=== PATIENT | male | born 1990 | race American Indian/Alaskan Native ===

== ENCOUNTER 2017-02-18 14:55 | Emergency (ER) | payer MEDICAID, OTHER ==
[2017-02-18 15:15] VITALS: BMI 23.3
[2017-02-18 15:19] VITALS: TEMP 100.7
[2017-02-18] MEDS ORDERED: Sodium Chloride 0.9% 1,000 ML IV STA (17:39)
--- NOTE | 2017-02-18 17:43 | ED PDOC ---
Arrival/HPI - General Chief Complaint: Medical Clearance Time Seen by Provider: 02/18/17 17:38 Historian: Patient - History of Present Illness Narrative History of Present Illness (Text): 02/18/17 17:40 This 26 yo male presents to this ED c/o bodyaches x 5 days. Patient stated he had been abusing Percocet, and he stopped taking them 5 days ago. Denies other complains. Time/Duration: Other (see hpi) Quality: Aching Context: Home Past Medical History - Provider Review Nursing Documentation Reviewed: Yes - Infectious Disease Hx of Infectious Diseases: None - Psychiatric Hx Substance Use: No - Anesthesia Hx Anesthesia: No Family/Social History - Physician Review Nursing Documentation Reviewed: Yes Family/Social History: Other (non-contributory) Smoking Status: Former Smoker Hx Alcohol Use: No Hx Substance Use: No Allergies/Home Meds Allergies/Adverse Reactions: Allergies No Known Allergies Allergy (Verified 02/18/17 15:15) Review of Systems - Review of Systems Constitutional: Normal. absent: Fatigue, Weight Change, Fevers Eyes: Normal ENT: Normal Respiratory: Normal. absent: SOB, Cough, Sputum, Wheezing Cardiovascular: Normal. absent: Chest Pain, Palpitations Gastrointestinal: Normal Genitourinary Male: Normal Musculoskeletal: Myalgias, Other (see hpi) Skin: Normal Neurological: Normal Endocrine: Normal Hemo/Lymphatic: Normal Psychiatric: Normal Physical Exam Vital Signs Temp Pulse Resp BP Pulse Ox 02/18/17 20:50 89 16 123/72 100 02/18/17 19:50 88 18 122/71 97 02/18/17 18:52 110 H 131/88 02/18/17 15:18 100.7 F H 108 H 18 122/82 98 Temperature: Febrile Blood Pressure: Normal Pulse: Tachycardic (mild) Respiratory Rate: Normal Appearance: Positive for: Well-Appearing, Non-Toxic, Comfortable Pain Distress: None Mental Status: Positive for: Alert and Oriented X 3 - Systems Exam Head: Present: Atraumatic, Normocephalic Pupils: Present: PERRL Extroacular Muscles: Present: EOMI Conjunctiva: Present: Normal Mouth: Present: Moist Mucous Membranes Neck: Present: Normal Range of Motion Respiratory/Chest: Present: Clear to Auscultation, Good Air Exchange. No: Respiratory Distress, Accessory Muscle Use Cardiovascular: Present: Regular Rate and Rhythm, Normal S1, S2. No: Murmurs Abdomen: Present: Normal Bowel Sounds. No: Tenderness, Distention, Peritoneal Signs Back: Present: Normal Inspection Upper Extremity: Present: Normal Inspection. No: Cyanosis, Edema Lower Extremity: Present: Normal Inspection. No: Edema Neurological: Present: GCS=15, CN II-XII Intact, Speech Normal Skin: Present: Warm, Dry, Normal Color. No: Rashes Psychiatric: Present: Alert, Oriented x 3, Normal Insight, Normal Concentration Medical Decision Making ED Course and Treatment: 02/18/17 20:19 Re-evaluation. Patient feels better. Discussed results and plan with patient who expresses understanding. All questions answered and there is agreement with the plan to discharge home with instructions. Patient stable for discharge. Return if symptoms persist or worsen. Patient came c/o withdrawal symptoms from Percocet. Labs were unremarkable. Patient was found to have fever. Patient requested medication for withdrawal and ABX for his fever. I explained patient fever may be related from Opiods withdrawal. He insisted to have ABX. Re-evaluation Time: 20:19 Reassessment Condition: Re-examined, Improved - Lab Interpretations Lab Results: 02/18/17 18:45 02/18/17 18:45 Lab Results 02/18/17 18:45: Salicylates < 1 L, Acetaminophen < 10.0 L 02/18/17 18:45: Sodium 134, Potassium 4.4, Chloride 96 L, Carbon Dioxide 27, Anion Gap 15, BUN 11, Creatinine 0.9, Est GFR ( Amer) > 60, Est GFR (Non- Af Amer) > 60, Random Glucose 96, Calcium 9.6, Total Bilirubin 0.7, AST 35, ALT 37, Alkaline Phosphatase 100, Total Protein 8.5 H, Albumin 4.7, Globulin 3.8, Albumin/Globulin Ratio 1.2 02/18/17 18:45: WBC 15.2 H, RBC 5.51, Hgb 16.2, Hct 46.7, MCV 84.8, MCH 29.4, MCHC 34.7, RDW 12.8, Plt Count 223, MPV 10.7, Gran % 85.2 H, Lymph % (Auto) 7.3 L, [place] % (Auto) 7.4 H, Eos % (Auto) 0.0 L, Baso % (Auto) 0.1, Gran # 12.92 H, Lymph # 1.1 L, [place] # 1.1 H, Eos # 0.0, Baso # 0.02 - Medication Orders Current Medication Orders: Discontinued Medications Clonidine HCl (Catapres) 0.1 mg PO STAT STA Stop: 02/18/17 17:40 Last Admin: 02/18/17 18:52 Dose: 0.1 mg Sodium Chloride (Sodium Chloride 0.9%) 1,000 mls @ 999 mls/hr IV .Q1H1M STA Stop: 02/18/17 18:39 Last Admin: 02/18/17 18:53 Dose: 999 mls/hr Ketorolac Tromethamine (Toradol) 30 mg IVP STAT STA Stop: 02/18/17 17:40 Last Admin: 02/18/17 18:53 Dose: 30 mg Ondansetron HCl (Zofran Inj) 4 mg IVP STAT STA Stop: 02/18/17 17:41 Last Admin: 02/18/17 18:53 Dose: 4 mg Disposition/Present on Arrival - Present on Arrival Any Indicators Present on Arrival: No History of DVT/PE: No History of Uncontrolled Diabetes: No Urinary Catheter: No History of Decub. Ulcer: No History Surgical Site Infection Following: None - Disposition Have Diagnosis and Disposition been Completed?: Yes Diagnosis: Withdrawal from opioids Disposition: HOME/ ROUTINE Disposition Time: 20:20 Patient Plan: Discharge Condition: IMPROVED Discharge Instructions (ExitCare): Opioid Withdrawal (ED) Additional Instructions: Call private doctor or clinic for follow up visit in 1-2 days. Take medication as instructed. Drink plenty of fluids, and rest. Return to emergency if symptoms worsen. Go to a DETOX program Prescriptions: Azithromycin [Z-Carlos] 250 mg PO DAILY #6 tab cloNIDine [Catapres] 0.1 mg PO BID #10 tab Naproxen 500 mg PO BID PRN #14 tab PRN Reason: Pain, Severe (8-10) Referrals: PCP,NO [Primary Care Provider] - Follow up with primary [facility] [Outside] - Follow up with primary [facility] [Outside] - Follow up with primary Forms: [employer] ([place]), WORK NOTE
[2017-02-18 19:05] LABS: BASO # 0.02 K/mm3 (0.0-2.0); BASO % 0.1 % (0.0-3.0); GRAN # 12.92 (1.4-6.5); GRAN % 85.2 % (50.0-68.0); HEMATOCRIT 46.7 % (42.0-52.0); LYMPH # 1.1 (1.2-3.4); LYMPH % 7.3 % (22.0-35.0); MEAN CELL VOLUME 84.8 fl (80.0-105.0); MEAN CORPUSCULAR HEMOGLOBIN 29.4 pg (25.0-35.0); MEAN CORPUSCULAR HGB CONC 34.7 g/dl (31.0-37.0); MEAN PLATELET VOLUME 10.7 fl (7.0-11.0); MONO # 1.1 (0.1-0.6); MONO % 7.4 % (1.0-6.0); RED CELL DISTRIBUTION WIDTH 12.8 % (11.5-14.5); WHITE BLOOD COUNT 15.2 10^3/ul (4.5-11.0)
[2017-02-18 19:08] LABS: ALB/GLOB RATIO 1.2 (1.1-1.8); ALKALINE PHOSPHATASE 100 U/L (38-126); ALT/SGPT 37 U/L (7-56); AST/SGOT 35 U/L (17-59); BILIRUBIN,TOTAL 0.7 mg/dL (0.2-1.3); BLOOD UREA NITROGEN 11 mg/dL (7-21); CALCIUM 9.6 mg/dL (8.4-10.5); CARBON DIOXIDE 27 mmol/L (21-33); CHLORIDE 96 mmol/L (98-107); GFR AFRICAN-AMERICAN > 60; GLUCOSE,RANDOM 96 mg/dL (70-110); POTASSIUM 4.4 mmol/L (3.6-5.0); SODIUM 134 mmol/L (132-148); TOTAL PROTEIN 8.5 g/dL (5.8-8.3)
[2017-02-18 23:13] VITALS: BP 123/72; PULSE 89; RESP 16; O2SAT 100
== END 2017-02-18 20:50 | disposition home or self-care (01) ==
LOC: ED 14:55
DX: F11.23 Opioid dependence with withdrawal (principal); B34.9 Viral infection, unspecified
CPT/HCPCS: 80053; 85025; 96374; 96375; 99283; G0480; J1885; J2405; J7040